=== PATIENT | female | born 1990 | race Caucasian/White ===

== ENCOUNTER 2022-11-19 09:41 | Emergency (ER) | payer BC | END 2022-11-19 14:50 | disposition home or self-care (01) | LOC: JD.ED 09:41 | DX: O26.851 Spotting complicating pregnancy, first trimester (principal); Z86.16 Personal history of COVID-19; Z88.8 Allergy status to other drugs, medicaments and biological substances; Z3A.01 Less than 8 weeks gestation of pregnancy | CPT/HCPCS: 36415; 76802; 76802-26; 84702; 99284 ==

== ENCOUNTER 2022-12-21 01:07 | Observation (INO) | payer BC ==
[2022-12-21] MEDS ORDERED: Dextrose 5%-Lactated Ringers 1,000 ML IV SCH (01:45)
[2022-12-21] MEDS ORDERED: HYDROmorphone 0.5 MG/0.5 ML Syringe IVPUSH ONE ×2 (01:47→02:44)
[2022-12-21] MEDS ORDERED: Ondansetron 4 MG/2 ML SDV IVPUSH ONE ×2 (01:47→04:26)
[2022-12-21 02:01] LABS: BASOPHILS ABSOLUTE AUTO 0.01 K/mm3 (0.01-0.08); BASOPHILS PERCENT AUTO 0.1 % (0.1-1.2); EOSINOPHILS ABSOLUTE AUTO 0.17 K/mm3 (0.04-0.36); EOSINOPHILS PERCENT AUTO 1.6 (0.7-5.8); HEMATOCRIT 41.2 % (34.1-44.9); HEMOGLOBIN 13.6 gm/dl (11.2-15.7); IMMATURE GRAN ABSOLUTE AUTO 0.02 K/mm3 (0.00-0.10); IMMATURE GRAN PERCENT AUTO 0.2 % (<=1.0); LYMPHOCYTES ABSOLUTE AUTO 3.52 K/mm3 (1.18-3.74); LYMPHOCYTES PERCENT AUTO 33.9 % (19.3-51.7); MEAN CORPUSCULAR HEMOGLOBIN 28.5 pg (25.6-32.2); MEAN CORPUSCULAR VOLUME 86.2 fl (79.4-94.8); MEAN PLATELET VOLUME 9.8 fl (9.4-12.3); MONOCYTES ABSOLUTE AUTO 0.66 K/mm3 (0.24-0.36); MONOCYTES PERCENT AUTO 6.4 % (4.7-12.5); NEUTROPHILS PERCENT AUTO 57.8 % (34.0-71.1); PLATELET COUNT,PLT 295 K/mm3 (182-369); RED BLOOD CELL COUNT 4.78 M/mm3 (3.98-5.22); WHITE BLOOD CELL COUNT,WBC 10.38 K/mm3 (3.98-10.04)
[2022-12-21 02:51] LABS: A/G RATIO 0.8 (1-2); ALBUMIN 3.6 g/dl (3.4-5.0); ANION GAP 11.7 (5-15); BILIRUBIN TOTAL 0.3 mg/dL (0.2-1.0); BUN/CREATININE RATIO 7.5 (14-18); CALCIUM 8.9 mg/dL (8.5-10.1); CREATININE 0.8 mg/dL (0.55-1.02); EST CRCL DRUG DOSING (CG) 103.55 mL/min; POTASSIUM,K 3.7 mEq/L (3.5-5.1)
[2022-12-21] MEDS ORDERED: Ondansetron 4 MG/2 ML SDV IVPUSH PRN (06:55)
[2022-12-21] MEDS ORDERED: HYDROmorphone 0.5 MG/0.5 ML Syringe IVPUSH PRN (06:55)
[2022-12-21] MEDS ORDERED: Dextrose 5%-0.9% NaCl 1,000 ML IV SCH (07:00)
[2022-12-21] MEDS ORDERED: fentaNYL 100 MCG/2 ML SDV ONE (09:03)
[2022-12-21] MEDS ORDERED: Propofol 200 MG/20 ML SDV ONE (09:03)
[2022-12-21] MEDS ORDERED: Lidocaine 1% 4 ML ONE (09:03)
[2022-12-21] MEDS ORDERED: Midazolam 1 MG/ML 2 ML SDV ONE (09:04)
[2022-12-21] MEDS ORDERED: ceFAZolin 2 GM Vial ONE (09:15)
[2022-12-21] MEDS ORDERED: Ondansetron 4 MG/2 ML SDV ONE (09:17)
[2022-12-21] MEDS ORDERED: Lactated Ringers 1,000 ML ONE (09:22)
[2022-12-21] MEDS ORDERED: Ketorolac 30 MG/ML SDV ONE (09:31)
== END 2022-12-21 13:47 | disposition home or self-care (01) ==
LOC: JD.ED 01:07 → JD.MS 04:44
PROVIDERS: ADMIT Obstetrics & Gynecology; ATTEND Obstetrics & Gynecology
DX: O02.1 Missed abortion (principal); O99.019 Anemia complicating pregnancy, unspecified trimester; Z79.899 Other long term (current) drug therapy; Z88.8 Allergy status to other drugs, medicaments and biological substances; Z86.16 Personal history of COVID-19
CPT/HCPCS: 36415; 59820; 76817; 80053; 84702; 85025; 86850; 86900; 86901; 96361; 96374; 96375; 96376; 99285; G0378; J0690; J1170; J1885; J2250; J2405; J2704; J3010; J7042; J7120; J7121; 01965; 99284; J3490

== ENCOUNTER 2024-09-08 08:07 | Inpatient (IN) | payer BC ==
[2024-09-08] MEDS: Lactated Ringers 500 ML IV ONE (09:05)
[2024-09-08] MEDS: Terbutaline 1 MG/ML SDV SUBCUT ONE (09:07)
[2024-09-08] MEDS ORDERED: Sodium Chloride 0.9% 10 ML Syringe FLUSH PRN (10:08)
[2024-09-08] MEDS ORDERED: Oxytocin/0.9 % Sodium Chloride 30 UNIT/500 ML BAG IV SCH (10:15)
[2024-09-08 10:27] LABS: HEMATOCRIT 40.7 % (37.0-47.0); HEMOGLOBIN 13.3 gm/dl (12.0-16.0); MEAN CORPUSCULAR HEMOGLOBIN 30.9 pg (28.0-32.0); MEAN CORPUSCULAR HGB CONC 32.7 g/dl (32.0-36.0); MEAN CORPUSCULAR VOLUME 94.4 fl (83.0-99.0); MEAN PLATELET VOLUME 10.8 fl (9.4-12.3); PLATELET COUNT,PLT 214 K/mm3 (150-400); RED BLOOD CELL COUNT 4.31 M/mm3 (4.10-5.30); WHITE BLOOD CELL COUNT,WBC 9.83 K/mm3 (3.9-11.3)
[2024-09-08] MEDS: Lactated Ringers 1,000 ML IV SCH (10:31)
[2024-09-08] MEDS: Citric Acid/Sodium Citrate Solution 30 ML Cup PO ONE (10:53)
[2024-09-08] MEDS: Metoclopramide 10 MG/2 ML SDV IVPUSH ONE (10:53)
[2024-09-08] MEDS ORDERED: Morphine PF 10 MG/10 ML SDV ONE (11:05)
[2024-09-08] MEDS ORDERED: Ondansetron 4 MG/2 ML SDV ONE ×2 (11:06→11:09)
[2024-09-08] MEDS ORDERED: ceFAZolin 2 GM Vial ONE (11:06)
[2024-09-08] MEDS ORDERED: Ketorolac 30 MG/ML SDV ONE (11:06)
[2024-09-08] MEDS ORDERED: ePHEDrine 50 MG/ML SDV ONE (11:06)
[2024-09-08] MEDS ORDERED: Dexamethasone 4 MG/ML SDV ONE (11:09)
[2024-09-08] MEDS ORDERED: Ondansetron 4 MG/2 ML SDV IVPUSH PRN (11:46)
[2024-09-08] MEDS ORDERED: fentaNYL 100 MCG/2 ML SDV IVPUSH PRN (11:46)
[2024-09-08] MEDS ORDERED: Meperidine 50 MG/ML Vial IVPUSH PRN (11:46)
[2024-09-08] MEDS ORDERED: Lactated Ringers 1,000 ML ONE (11:49)
[2024-09-08] MEDS ORDERED: Naloxone 0.4 MG/ML SDV IVPUSH PRN (13:38)
[2024-09-08] MEDS ORDERED: Ondansetron 4 MG/2 ML SDV IV PRN (13:38)
[2024-09-08] MEDS ORDERED: Docusate Sodium 100 MG Cap PO PRN (13:38)
[2024-09-08] MEDS ORDERED: oxyCODONE 5 MG Tab PO PRN (13:38)
[2024-09-08] MEDS: ceFAZolin 2 GM in Sodium Chloride 0.9% 50 ML IV ONE (15:14)
[2024-09-08] MEDS: Dextrose 5%-Lactated Ringers 1,000 ML IV SCH (15:46)
[2024-09-08 18:50] LABS: BASOPHILS PERCENT AUTO 0.1 % (0.0-1.0); HEMATOCRIT 31.5 % (37.0-47.0); IMMATURE GRAN ABSOLUTE AUTO 0.06 K/mm3 (0.00-0.05); IMMATURE GRAN PERCENT AUTO 0.5 % (0.0-0.4); LYMPHOCYTES ABSOLUTE AUTO 0.9 K/mm3 (1.0-4.8); LYMPHOCYTES PERCENT AUTO 6.8 % (24.0-44.0); MEAN CORPUSCULAR HEMOGLOBIN 31.1 pg (28.0-32.0); MEAN CORPUSCULAR HGB CONC 32.7 g/dl (32.0-36.0); MEAN CORPUSCULAR VOLUME 95.2 fl (83.0-99.0); MEAN PLATELET VOLUME 10.7 fl (9.4-12.3); MONOCYTES ABSOLUTE AUTO 0.3 K/mm3 (0.0-0.8); MONOCYTES PERCENT AUTO 2.5 % (0.0-8.0); NEUTROPHILS ABSOLUTE AUTO 11.3 K/mm3 (1.8-7.7); NEUTROPHILS PERCENT AUTO 90.1 % (41.0-71.0); PLATELET COUNT,PLT 197 K/mm3 (150-400); PROTHROMBIN TIME 9.8 SECONDS (9.7-12.0); RED BLOOD CELL COUNT 3.31 M/mm3 (4.10-5.30); WHITE BLOOD CELL COUNT,WBC 12.56 K/mm3 (3.9-11.3)
[2024-09-08 18:52] LABS: HEMOGLOBIN 10.3 gm/dl (12.0-16.0)
[2024-09-08 18:55] LABS: INR < 0.93
[2024-09-08] MEDS: Ketorolac 30 MG/ML SDV IVPUSH SCH (18:55)
[2024-09-08 19:05] LABS: SLIDE REVIEW ABNORMAL SMEAR
[2024-09-08] MEDS ORDERED: Sodium Chloride 0.9% 10 ML Syringe FLUSH SCH (21:00)
[2024-09-09 05:44] LABS: HEMATOCRIT 27.7 % (37.0-47.0); HEMOGLOBIN 9.2 gm/dl (12.0-16.0); MEAN CORPUSCULAR HEMOGLOBIN 31.4 pg (28.0-32.0); MEAN CORPUSCULAR HGB CONC 33.2 g/dl (32.0-36.0); MEAN CORPUSCULAR VOLUME 94.5 fl (83.0-99.0); MEAN PLATELET VOLUME 10.1 fl (9.4-12.3); PLATELET COUNT,PLT 179 K/mm3 (150-400); RED BLOOD CELL COUNT 2.93 M/mm3 (4.10-5.30); WHITE BLOOD CELL COUNT,WBC 12.64 K/mm3 (3.9-11.3)
[2024-09-09] MEDS: Acetaminophen 325 MG Tab PO PRN (06:14)
[2024-09-09] MEDS ORDERED: Polyethylene Glycol 3350 Powder 17 GM Packet PO PRN (08:45)
[2024-09-09] MEDS ORDERED: Measles, Mumps & Rubella Vaccine 0.5 ML SDV SUBCUT ONE (08:53)
[2024-09-09] MEDS: Ibuprofen 600 MG Tab PO SCH (13:29)
[2024-09-09] MEDS: diphenhydrAMINE 50 MG/ML SDV IVPUSH PRN (13:30)
[2024-09-09] MEDS: diphenhydrAMINE 25 MG Cap PO PRN (14:40)
[2024-09-09] MEDS: Ferrous Sulfate 324 MG Tab.EC PO SCH (19:49)
[2024-09-10] MEDS: Ibuprofen 600 MG Tab PO SCH (06:13)
[2024-09-10] MEDS: Ferrous Sulfate 324 MG Tab.EC PO SCH (09:00)
== END 2024-09-10 11:50 | disposition home or self-care (01) | DRG 540 ==
LOC: JD.OBCHECK 08:07 → JD.OB 08:14 → JD.OBCHECK 10:08 → JD.OB 10:09
PROVIDERS: ADMIT Obstetrics & Gynecology; ATTEND Obstetrics & Gynecology
PROC: 10D00Z1 Extraction of Products of Conception, Low, Open Approach (ICD-10-PCS; principal; 2024-09-08 11:30)
PROC: 3E0234Z Introduction of Serum, Toxoid and Vaccine into Muscle, Percutaneous Approach (ICD-10-PCS; principal; 2024-09-08 11:30)
DX: O32.2XX0 Maternal care for transverse and oblique lie, not applicable or unspecified (principal); O99.02 Anemia complicating childbirth; O34.211 Maternal care for low transverse scar from previous cesarean delivery; Z3A.38 38 weeks gestation of pregnancy; Z37.0 Single live birth; J45.909 Unspecified asthma, uncomplicated; O99.52 Diseases of the respiratory system complicating childbirth; D62 Acute posthemorrhagic anemia; Z23 Encounter for immunization; Z86.16 Personal history of COVID-19; Z87.891 Personal history of nicotine dependence; Z79.899 Other long term (current) drug therapy; Z88.8 Allergy status to other drugs, medicaments and biological substances; Z98.890 Other specified postprocedural states
CPT/HCPCS: 01961; 36415; 59025; 59412; 85025; 85027; 85384; 85610; 86592; 86850; 86900; 86901; 94762; 99140; A9270-GY; J0690; J1100; J1200; J1885; J2274; J2405; J2765; J3490; J7120; J7121